=== PATIENT | female | born 1955 | race Caucasian/White ===

== ENCOUNTER → 2023-08-24 10:43 | Outpatient (CLI) | payer MEDICARE, OTHER, SELFPAY ==
--- NOTE | 2023-08-24 10:47 | DI.RAD.S_ITS ---
PROCEDURE: FL SHOULDER INJECTION MR/CT RT INDICATIONS: RIGHT SHOULDER PAIN COMPARISON: [facility], MR, MR SHOULDER RT W CON, 08/24/2023, 11:28. TECHNIQUE: The indications, alternatives, benefits, risks, and complications of the procedure were explained to the patient. Written informed consent was obtained and placed in the chart. The shoulder was examined fluoroscopically and a site for needle placement chosen for entry into the glenohumeral joint from an anterior approach. The skin was prepped and draped in a sterile fashion, and 1% lidocaine infiltrated from skin down to joint capsule. A spinal needle was inserted into the glenohumeral joint, and a small amount of iodinated contrast media injected to confirm intra-articular placement of the needle tip. This was followed by approximately 12 mL dilute solution of a gadolinium containing MR contrast agent. The needle was removed and a dressing was applied. The patient was given postprocedural instructions and sent to the MR suite for MR imaging. FINDINGS: A single fluoroscopic spot image demonstrates intra-articular location of injected iodinated contrast. IMPRESSION: Successful fluoroscopically guided administration of dilute Gadolinium solution into the shoulder joint for MR arthrogram. Dictated by: Pepe Ferro M.D. on 08/24/2023 at 13:10 Approved by: Pepe Ferro M.D. on 08/24/2023 at 13:10
--- NOTE | 2023-08-24 10:47 | DI.MRI.S_ITS ---
PROCEDURE: MR SHOULDER RT W CON INDICATIONS: RIGHT SHOULDER PAIN TECHNIQUE: After the administration of 12 mL of dilute intra-articular Gadolinium contrast, oblique coronal T1 and T2 spin echo with fat saturation, oblique sagittal T1 spin echo with and without fat saturation, oblique sagittal T2 fast spin echo with fat saturation, axial T1 spin echo with fat saturation through the shoulder. COMPARISON: [facility], MR, MR SHOULDER RIGHT WITHOUT CONTRAST, 07/13/2022, 18:25. [facility], [place], [place] SHOULDER INJECTION MR/CT RT, 08/24/2023, 10:15. FINDINGS: Image quality: Excellent. Rotator cuff: There is full-thickness tearing of the supraspinatus tendon and the anterior fibers of the infraspinatus tendon with proximal traction of bursal sided fibers by up to 2.6 cm as well as delamination and further retraction of articular sided fibers measuring up to 4.4 cm. Tear measures approximately 1.6 cm and anterior-posterior dimension. Findings have progressed when compared to the MRI from 07/13/2022. There is mild atrophy and grade 2 fatty infiltration of the supraspinatus and infraspinatus muscles. Teres minor muscle is intact. Subscapularis muscle demonstrates high-grade partial intrasubstance and articular sided tearing at the superior insertion. There is grade 2 fatty infiltration of the subscapularis muscle. Bones and bursae: No acute trabecular bone injury or fracture. Chronic traction cystic changes are seen in the posterior superior humeral head and greater and lesser tuberosities at the rotator cuff tendon insertions. Humeral head is high riding with mild narrowing of the acromial humeral interval. Partial-thickness cartilage irregularity seen at the humeral joint. Moderate degenerative changes are seen at the acromioclavicular joint with subchondral cystic changes, subchondral edema, marginal osteophyte formation. Glenohumeral contrast material communicates with the subacromial/subdeltoid bursa. No glenohumeral loose body. Capsule and soft tissues: Diffuse labral degeneration and chronic degenerative tearing at the superior to anterior superior labrum. There is partial tearing of the proximal biceps long head tendon which is subluxed medially into the substance of the distal subscapularis tendon. Glenohumeral ligaments are intact. IMPRESSION: 1. Full-thickness tearing of the supraspinatus tendon and the anterior fibers of the infraspinatus tendon at the distal insertions measuring 1.6 cm in anterior-posterior dimension with retraction of bursal sided fibers by approximately 2.6 cm as well as delamination and further retraction of articular sided fibers by up to 4.4 cm. Findings appear worse when compared to the MRI from 07/13/2022. Mild atrophy and grade 2 fatty infiltration of the supraspinatus and infraspinatus muscles. 2. High-grade partial articular sided and intrasubstance tearing of the subscapularis tendon at the superior insertion. Grade 2 fatty infiltration of the subscapularis muscle. 3. Partial intrasubstance tearing of the biceps long head tendon, which is subluxed medially relative to the bicipital groove into the substance of the distal subscapularis tendon. 4. 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 Chronic labral degeneration and degenerative tearing at the superior to anterior superior labrum. 5. Moderate acromioclavicular joint osteoarthrosis. 6. Glenohumeral contrast material communicates with the subacromial/subdeltoid bursa. Approved by: Valdemar Gerardo M.D. on 08/24/2023 at 21:07
[2023-08-24] MEDS: LIDOCAINE 1% 20 ML INJ (12:00)
[2023-08-24] MEDS: SODIUM CHLORIDE 0.9 % 20 ML VIAL IV (12:00)
== END ==
LOC: RAD 10:46
PROVIDERS: Family Provider Orthopaedic Surgery; PCP Physician Assistant; Referring Provider Orthopaedic Surgery; Visit Provider Orthopaedic Surgery
DX: M75.121 Complete rotator cuff tear or rupture of right shoulder, not specified as traumatic (principal); S46.111A Strain of muscle, fascia and tendon of long head of biceps, right arm, initial encounter; M19.011 Primary osteoarthritis, right shoulder; M94.211 Chondromalacia, right shoulder; M25.511 Pain in right shoulder
CPT/HCPCS: 23350; 73040; 73222; A9579; Q9967

== ENCOUNTER → 2023-11-26 14:55 | Outpatient (CLI) | payer MEDICARE, OTHER, SELFPAY ==
--- NOTE | 2023-11-26 14:56 | DI.ECHO.S_ITS ---
[place] [facility]---------+ [facility] : : [address] : : [place] : : [id number] : : Phone: [phone] Echocardiogram Report + + :Name: DANIEL ALCARAZ V Study Date: 11/26/2023 Height: 70 in : :[facility] ReadingLocation: Weight: 155 lb : : Gender: Female BSA: 1.9 m2 : :: 1955 Age: 68 yrs BP: 132/80 mmHg: :Reason For Study: PAROXYSMAL ATRIAL FIBRILLATION : :Ordering Physician: ROCIO SHAFFER Performed By: Jose Ramon Breaux : :Referring: ROCIO SHAFFER : + + Interpretation Summary 1. Normal LV contractility with EF > 55% and no WMA. Normal diastolic function. No LVH. 2. Normal RV contractility. 3. Normal cardiac chambers. 4. No significant valvular abnormalities. 5. No obvious intracardiac shunts. 6. No obvious intracardiac masses/thrombi. 7. No hemodynamically significant pericardial effusion. Conclusion: Normal biventricular function without significant structural abnormalities. Procedure: A two-dimensional transthoracic echocardiogram with color flow and Doppler was performed. The study quality was technically adequate. There is no prior echocardiogram noted for this patient. The patient was in sinus rhythm with heart rates between 54-69 bpm during the exam. Left Ventricle: The left ventricle is normal in size and wall thickness. The ejection fraction is estimated to be 55-60%. Right Ventricle: The right ventricle is normal size. The right ventricular systolic function is normal. Atria: The left atrial size is normal. Right atrial size is normal. The interatrial septum grossly appears intact with no obvious evidence for an atrial septal defect. Mitral Valve: The mitral valve is normal. There is no mitral valve stenosis. There is trace mitral regurgitation. Aortic Valve: The aortic valve is trileaflet. There is no aortic valve stenosis. No aortic regurgitation is present. Tricuspid Valve: The tricuspid valve is normal. There is no tricuspid stenosis. There is mild tricuspid regurgitation. The right ventricular systolic pressure is estimated to be at least 26.0 mmHg based on an estimated right atrial pressure of 3 mm Hg. Pulmonic Valve: The pulmonic valve is not well visualized. There is no pulmonic valvular stenosis. There is no pulmonic valvular regurgitation. Great Vessels: The aortic root is normal size. The dimensions of the ascending aorta are normal. The IVC is of normal diameter and collapses greater than 50% with a sniff. This suggests a low right atrial pressure of 3 mm Hg. Pericardium/ Pleura There is no pericardial effusion. There is no pleural effusion. MMode/2D Measurements & Calculations LVIDd: 4.2 cm LVOT diam: 2.0 cm LVIDs: 2.7 cm Ao root diam: 2.8 cm FS: 36.7 % asc Aorta Diam: 2.9 cm IVSd: 0.99 cm Ao Arch Diam (Prox Trans): 2.2 cm LVPWd: 0.97 cm LV winters. diameter/BSA (cm/m^2): 2.2 LV sys. diameter/BSA (cm/m^2): 1.4 LA A2 area: 19.6 cm2 RA long axis: 4.6 cm LA A4 area: 18.7 cm2 RA area: 13.0 cm2 LA length (vol): 5.4 cm RA vol: 31.4 ml LA vol: 57.1 ml RA : 16.7 ml/m2 LA vol index: 30.5 ml/m2 IVC diam: 2.0 cm RVD1 (basal): 3.3 cm RVD2 (mid): 2.9 cm TAPSE: 2.3 cm Doppler Measurements & Calculations Ao V2 max: 114.6 cm/sec LVOT Max Lazaro: 89.7 cm/sec Ao V2 mean: 81.3 cm/sec LV V1 max P.2 mmHg Ao max P.3 mmHg LV V1 VTI: 21.1 cm Ao mean P.9 mmHg LATRELL(I,D): 2.6 cm2 Ao V2 VTI: 25.7 cm LATRELL(V,D): 2.5 cm2 sev ratio: 0.82 LATRELL indexed to BSA (cm^2/m^2): 1.4 MV E max lazaro: 71.7 cm/sec TR max lazaro: 239.7 cm/sec MV A max lazaro: 57.0 cm/sec TR max P.0 mmHg MV E/A: 1.3 PA V2 max: 84.3 cm/sec Med Peak E' Lazaro: 8.3 cm/sec PA V2 mean: 58.4 cm/sec E/E' med: 8.7 PA mean P.5 mmHg Lat Peak E' Lazaro: 10.0 cm/sec PA pr(Accel): 31.0 mmHg E/E' lat: 7.2 E/e' average: 7.9 MV dec time: 0.25 sec SV(LVOT): 67.6 ml Reading Physician:
== END ==
PROVIDERS: Family Provider Orthopaedic Surgery; PCP Physician Assistant; Referring Provider Internal Medicine; Visit Provider Internal Medicine
DX: I07.1 Rheumatic tricuspid insufficiency (principal); I48.0 Paroxysmal atrial fibrillation
CPT/HCPCS: 93306